=== PATIENT | female | born 1945 | race Caucasian/White ===

== ENCOUNTER 2024-05-20 23:58 | Inpatient (IN) | payer MEDICARE, OTHER, SELFPAY ==
[2024-05-20 20:25] LABS: % Basophils 0.2 % (0-2); % Immature Granulocytes 0.7 % (0-0.5); % Lymphocytes 4.2 % (20.5-51.1); % Monocytes 4.7 % (1.7-9.3); % Neutrophils 90.2 % (42.2-75.2); Absolute Immature Granulocytes 0.1 10^3/uL (0-0.05); Absolute Lymphocytes 0.4 10^3/uL (1.2-3.4); Absolute Monocytes 0.4 10^3/uL (0.1-0.6); Absolute Neutrophils 8.3 10^3/uL (1.4-6.5); Hematocrit 41.9 % (37.0-47.0); Hemoglobin 14.3 g/dL (12.0-16.0); Mean Corp Hgb Conc. 34.1 g/dL (33.0-37.0); Mean Corpuscular Hgb 30.2 pg (27.0-31.0); Mean Corpuscular Volume 88.4 fL (81.0-99.0); Mean Platelet Volume 8.9 fL (7.4-10.4); Nucleated Red Blood Cells % 0 %; Platelet Count 200 10^3/uL (130-400); Red Blood Cell Count 4.74 10^6/uL (4.20-5.40); Red Cell Dist. Width 13.3 % (11.5-14.5); White Blood Cell Count 9.1 10^3/uL (4.8-10.8)
[2024-05-20 20:47] LABS: ALT (SGPT) 170 U/L (0-35); AST (SGOT) 182 U/L (14-36); Albumin 4.2 g/dl (3.5-5.0); Alkaline Phosphatase 117 U/L (38-126); Blood Urea Nitrogen 20 mg/dl (7-17); Carbon Dioxide 22 mmol/L (22-30); Glucose 204 mg/dl (70-99); Lipase 21 U/L (23-300); Total Bilirubin 0.7 mg/dl (0.2-1.3); Total Protein 7.1 g/dl (6.3-8.2); eGFR 58.02
[2024-05-20 20:55] LABS: Chloride 97 mmol/L (98-107); Potassium 3.9 mmol/L (3.5-5.1); Sodium 130 mmol/L (135-145)
[2024-05-20] MEDS: NSS 1000 IV (21:31)
--- NOTE | 2024-05-20 21:32 | ED.GENMED ---
History of Present Illness
General
Chief Complaint: Abdominal Symptoms
Source: patient
Exam Limitations: none
Time Seen by Provider: 05/20/24 20:12
History of Present Illness
History of Present Illness:
This is a 79 year old female that comes in with c/o just not feeling well. Staes that last night she had the chills. States that this stopped around 2am. Then today she felt better but at 4pm she started wiht chills nausea and vomiting. States that
she has not had a fever. States that she has a headache and slightly dizzy. Denies any fever, shelly pain, SOB, abd pain diarrhea, urinary burning.
Past History
Past History
ED Past Medical History: IDDM and Other (Neuropathy, )
ED Past Surgical History: Cardiac (Stents)
Social History
Tobacco: Former smoker
Alcohol: None
Living: with family
Review of Systems
Review of Systems
All Other Systems: ROS reviewed and negative except as documented in HPI and ROS
Constitutional: Reports chills; Denies fever
EENT: Reports no symptoms
Respiratory: Reports no symptoms; Denies cough or trouble breathing
Cardiac: Reports no symptoms; Denies chest pain
ABD/GI: Reports nausea and vomiting; Denies abdominal pain or diarrhea
: Reports no symptoms; Denies dysuria, frequency or urgency
Musculoskeletal: Reports no symptoms
Skin: Reports no symptoms
Neurological: Reports dizzy (Slight) and headache
Psychiatric: Reports no symptoms
Phy Exam
General Physical Exam
General Presentation: no apparent distress
General age: appears stated age
General Skin: warm and dry
General Habitus: elderly
General Mental: alert
General Hydration: dry mucous membranes
ENT Exam
ENT Exam: TM's normal, pharynx normal and neck supple
Eye Exam
Eye Exam: EOMI
Cardiovascular Exam
Cardiovascular Exam: regular rate/rhythm, no edema, no murmur and normal peripheral pulses
Pulmonary Exam
Pulmonary Exam: lungs clear, no respiratory distress, no rales, chest non tender, no crackles, no wheezing and no cough
Gastrointestinal Exam
Gastrointestinal Exam: normal bowel sounds, non tender, soft, no organomegaly, no pulsatile mass and non distended
Musculoskeletal Exam
Musculoskeletal Exam: full ROM and no edema
Skin Exam
Skin Exam: normal color, warm/dry, no rash and no petechia
Psychiatric Exam
Psychiatric Exam: normal mood/affect
Course
Orders/Labs/Results
Orders:
Orders
05/20/24 20:17
Complete Blood Count/With Diff Urgent
Comprehensive Metabolic Panel Urgent
Lipase Urgent
05/20/24 21:11
0.9% Sodium Chloride 1000 ml [Nss] 1,000 ml IV BOLUS
US Abdomen Complete/Upper Urgent
Comment:
Reason For Exam: elevated liver enzymes
05/20/24 21:30
Urinalysis Reflex To Culture Urgent
Date Specimen was Collected: 05/20/24
Time Specimen was Collected: 21:19
Urine Microscopic Reflex Cult Urgent
Urine Culture Urgent
PETE Source: U
Specimen Description:
Date Specimen was Collected: 05/20/24
Time Specimen was Collected: 21:19
Abnormal Lab Results
05/20/24 05/20/24
20:17 21:30
Abs Immat Gran (auto) 0.1 H 10^3/uL
(0-0.05)
Absolute Neuts (auto) 8.3 H 10^3/uL
(1.4-6.5)
Absolute Lymphs (auto) 0.4 L 10^3/uL
(1.2-3.4)
Immature Gran % 0.7 H %
(0-0.5)
Neutrophils % 90.2 H %
(42.2-75.2)
Lymphocytes % 4.2 L %
(20.5-51.1)
Sodium 130 L mmol/L
(135-145)
Chloride 97 L mmol/L
(98-107)
BUN 20 H mg/dl
(7-17)
Glucose 204 H mg/dl
(70-99)
AST 182 H U/L
(14-36)
ALT 170 H U/L
(0-35)
Lipase 21 L U/L
(23-300)
Urine Ketones Trace A
(Negative)
Ur Occult Blood Reflex 3+ A
(Negative)
Urine Bilirubin 1+ A
(Negative)
Leukocyte Esterase Rfl 2+ A
(Negative)
Urine RBC 3-6 A /HPF
(0-2)
Urine Bacteria (Reflex) Few A
(Negative)
05/20/24 20:17
05/20/24 20:17
Hyponatremia, Chloride very slightly low, Dehydration. Glucose nonfasting. AST/ALT elevation. Lipase slightly low.
Vital Signs
Initial and Last Documented VS:
Initial Vital Signs
Temp Pulse Resp Pulse Ox
97.9 F 74 18 91
05/20/24 20:00 05/20/24 20:00 05/20/24 20:00 05/20/24 20:00
Last Documented Vital Signs
Temp Pulse Resp Pulse Ox
98.6 F 74 18 91
05/20/24 21:32 05/20/24 20:00 05/20/24 20:00 05/20/24 20:00
MDM/Problems Addressed
Differential Diagnosis Includes:
Cholelithiasis, UTI
MDM/Problems Addressed:
This is a 79 year old female that comes in with c/o chills, nausea and vomiting.
Will get abs, Urine and US.
Back into see patient and family. Explained that her liver enzymes are elevated. Her US is normal. Patient continues with abd pain. Will admit. Hospitalist notified.
Chronic conditions affecting care: DM
Acute Exacerbation and/or Progression of Chronic Illness:
NA
*Radiology
Radiology exam reviewed: radiology read reviewed (US=Normal)
*Pulse Oximetry
Patient hypoxic: no
*EKG
Interpreted by ED Provider?: NA
Rate: EKG- N/A
*Control Officer Interpretation
Rate: Control Officer- N/A
*Critical Care Note
Total Time (30-74mins, 75-104mins- exclusive of procedures): Not Applicable
ED Attending Note
-
Portions of this chart may have been created with voice recognition software.� Occasional wrong word or��sound alike� substitutions may have occurred due to the inherent limitations of voice recognition software.
Discharge Plan
Departure
Patient Disposition: Admit
Date of Disposition: 05/20/24
Time of Disposition: 23:27
Admit to: Med/Surg
Presentation/result/management discussed w/ accepting MD/DO: Hospitalist
Patient with high blood pressure during this ER visit?: Yes
Condition: Good
Covid-19: Not Applicable
Discharge Problem:
Abdominal pain, Fever, Elevated liver enzymes
Prescriptions:
No Action
clopidogrel 75 MG tablet
75 mg PO DAILY
acetaminophen [Tylenol Extra Strength] 500 MG tablet
1,000 mg PO BIDPRN PRN (Reason: mild pain)
levothyroxine 50 MCG tablet
50 mcg PO HS
Patient Comments:
05/20/2024, pt. states to take between [id number].
amlodipine 5 MG tablet
5 mg PO DAILY Qty: 30 0RF
Theragen Tablet
1 tab PO DAILY
allopurinol 300 mg tablet
300 mg PO DAILY
olmesartan 40 mg Tablet
40 mg PO DAILY
insulin lispro [Humalog KwikPen Insulin] 100 unit/mL Insulin Pen
8 unit SC DAILY
insulin lispro [Humalog KwikPen Insulin] 100 unit/mL Insulin Pen
14 unit SC QPM
Levemir FlexPen 100 unit/mL (3 mL) Insulin Pen
18 unit SC DAILY
Referrals:
UNKNOWN - PT DOES,NOT KNOW [Family Provider] -
Interventions
Interventions:
*General Assessment Last Done: 05/20/24 20:02
[id number] Assessment Last Done: 05/20/24 20:15
Discharge Date and Time
Print Language: UKRAINIAN
[2024-05-20 21:38] LABS: Urine Albumin Trace (Neg - Trace); Urine Bilirubin 1+ (Negative); Urine Character Clear (Clear); Urine Color Yellow; Urine Glucose Negative (Negative); Urine Ketone Trace (Negative); Urine Leukocyte 2+ (Negative); Urine Nitrite Negative (Negative); Urine Occult Blood 3+ (Negative); Urine Urobilinogen Negative (Neg - 1+)
[2024-05-20 21:47] LABS: Urine Bacteria Few (Negative)
[2024-05-20 23:34] VITALS: BP 189/76
--- NOTE | 2024-05-20 23:55 | HPS.HSE ---
Family Physician
-
Family Physician: NOT KNOW UNKNOWN - PT DOES
Chief Complaint
-
abdominal pain
History of Present Illness
79-year-old female with past medical history of diabetes, neuropathy, CAD status post stents, hypertension, gout, hypothyroidism, presenting with not feeling well and chills last night. Today she felt better but at 4 PM she started having chills,
nausea and 2 episodes of vomiting. No diarrhea. She had pain across the lower part of her belly. She denies fever. She had headache and some dizziness. Denies chest pain, shortness of breath, abdominal pain, diarrhea, urinary symptoms.
Patient does eat at restaurants frequently but no recent travel and denies eating any foods that might irritate her GI tract recently. No sick contacts.
She denies ever having pain like this before. She does have a family history of gallstones but never personally had gallstones.
Patient denies smoking or alcohol use.
Medical History
Past Medical History
Past Medical History: Reports Other (diabetes, neuropathy, CAD status post stents, hypertension, gout, hypothyroidism,)
Past Surgical History: Reports None
Social History
Tobacco: Non-smoker
Alcohol: None
Drug: None
Family History
Family History: Not pertinent
Allergies / Home Medications
Allergies reflects when Allergies were last updated in [facility].
Home Medications with original date entered in [facility]
Allergy/Medication List:
Allergies
Allergy/AdvReac Type Severity Reaction Status Date / Time
No Known Allergies Allergy Unverified 01/24/21 17:03
Home Medications
acetaminophen 500 mg tablet (Tylenol Extra Strength) 1,000 mg PO BIDPRN PRN mild pain 01/24/21
clopidogrel 75 mg tablet 75 mg PO DAILY Blood clot prevention/tx 01/24/21
levothyroxine 50 mcg tablet 50 mcg PO HS Thyroid 01/24/21
amlodipine 5 mg tablet 5 mg PO DAILY #30 tabs 01/27/21
allopurinol 300 mg tablet 300 mg PO DAILY 05/20/24
insulin detemir U-100 100 unit/mL (3 mL) subcutaneous pen (Levemir FlexPen) 18 unit SC DAILY 05/20/24
insulin lispro 100 unit/mL subcutaneous pen (Humalog KwikPen (U-100) Insulin) 8 unit SC DAILY 05/20/24
insulin lispro 100 unit/mL subcutaneous pen (Humalog KwikPen (U-100) Insulin) 14 unit SC QPM 05/20/24
olmesartan 40 mg tablet 40 mg PO DAILY 05/20/24
therapeutic multivitamin 1 tab PO DAILY 05/20/24
Review of Systems
-
History Source: Patient
A 12 point ROS was completed and negative except as noted: Yes
Constitutional: Reports No Symptoms
EENT: Reports No Symptoms
Respiratory: Reports No Symptoms
Cardiac: Reports No Symptoms
Abdomen/GI: Reports See HPI
: Reports No Symptoms
Musculoskeletal: Reports No Symptoms
Skin: Reports No Symptoms
Neurological: Reports No Symptoms
Endocrine: Reports No Symptoms
Hematologic/Lymphatic: Reports No Symptoms
Psych: Reports No Symptoms
Physical Exam
Vital Signs
Vital Signs
Temp Pulse Resp BP Pulse Ox
99.1 F 74 18 189/76 91
05/20/24 23:34 05/20/24 20:00 05/20/24 20:00 05/20/24 23:34 05/20/24 20:00
Physical Exam
General: Well Developed, Well Nourished and No Apparent Distress
HEENT: NormoCephalic, Moist mucous membranes and Atraumatic
Respiratory: Clear
Cardiac: S1/S2 and Regular Rhythm; No Murmur or Rub
GI: Soft, Non Tender, Non Distended and Normal Bowel Sounds; No Organomegaly
Rectal: Deferred by Provider
Musculoskeletal: No Clubbing, No Cyanosis and No Edema
Skin: No Rash
Neuro: Nonfocal/grossly intact
Laboratory Results
-
05/20/24 20:17
05/20/24 20:17
Laboratory Results
Total Bilirubin 0.7 mg/dl (0.2-1.3) 05/20/24 20:17
AST 182 U/L (14-36) H 05/20/24 20:17
ALT 170 U/L (0-35) H 05/20/24 20:17
Alkaline Phosphatase 117 U/L (38-126) 05/20/24 20:17
Lipase 21 U/L (23-300) L 05/20/24 20:17
Impression/Plan
-
IMPRESSION:
PLAN:
# Abdominal pain/vomiting/transaminitis suspect possible choledocholithiasis vs gastroenteritis
-Abdominal ultrasound unremarkable
-N.p.o.
-IV fluids
-Monitor liver enzymes and consider MRCP/GI tomorrow
-Zosyn
CAD status post stents
-hold Plavix for now
Essential hypertension
-Continue amlodipine
-Continue olmesartan
Type 2 diabetes
-Continue Lantus decrease to 11 units
-Hold Premeal Humalog
-Insulin sliding scale
Diabetic neuropathy
Gout
-Continue allopurinol
Hypothyroidism
-Continue levothyroxine
Full code
DVT prophylaxis�SCDs
N.p.o.
[2024-05-21] MEDS: TYLENOL/FEVERALL 650 MG RECTAL (01:19)
[2024-05-21] MEDS: NSS 1000 IV ×3 (01:34→16:18)
[2024-05-21] MEDS: COMPAZINE 5 MG IV (01:36)
[2024-05-21 02:03] LABS: Glucose - Point of Care 192 mg/dl (70-99)
[2024-05-21 02:06] VITALS: BMI 36.2
[2024-05-21 02:07] VITALS: BP 172/70
--- NOTE | 2024-05-21 04:05 | PTCARENOTE ---
Patient arrived on unit about 0200, she appear lethargic but alert to time, place and person. She answered questions appropriately and follows directions. Lungs are clear on room air, even and unlabored respiration. Hypoactive bowl sounds X4
quadrant. Temp on arrival to unit was 101. Currently her temp is 99.0. She stated she feels much better. She is X1 assist to the bathroom. Bed at lowest level, call whalen with in reached. Will continue to monitor.
[2024-05-21] MEDS: ZOSYN 50 IV ×4 (04:36→22:40)
[2024-05-21 05:28] LABS: Glucose - Point of Care 166 mg/dl (70-99)
[2024-05-21] MEDS: NOVOLOG FLEXPEN-MODERATE RESISTANCE 1 UNITS SC (05:54)
[2024-05-21 06:05] VITALS: BP 118/56
--- NOTE | 2024-05-21 06:17 | W.PN.UPDATE ---
Update Note
Progress Note Update
Patient noted in ED earlier with T 104 and episode of vomiting. Family said it appeared to be dark brown and concern for 'old blood'. She had been taking Plavix for previous cardiac stents. She will be evaluated by GI service.
--- NOTE | 2024-05-21 07:02 | PTCARENOTE ---
Patient bladder scan about 0230 with 210ml noted on scan.
[2024-05-21 07:31] VITALS: BP 180/61
[2024-05-21] MEDS: BENICAR 40 MG PO (07:52)
[2024-05-21] MEDS: NORVASC 5 MG PO (07:53)
[2024-05-21 07:56] LABS: Hematocrit 39.9 % (37.0-47.0); Hemoglobin 13.6 g/dL (12.0-16.0); Mean Corp Hgb Conc. 34.1 g/dL (33.0-37.0); Mean Corpuscular Hgb 30.2 pg (27.0-31.0); Mean Corpuscular Volume 88.7 fL (81.0-99.0); Mean Platelet Volume 9.1 fL (7.4-10.4); Platelet Count 162 10^3/uL (130-400); Red Cell Dist. Width 13.4 % (11.5-14.5); White Blood Cell Count 8.3 10^3/uL (4.8-10.8)
[2024-05-21 07:58] LABS: Glucose - Point of Care 172 mg/dl (70-99)
[2024-05-21] MEDS: LANTUS SC (08:10)
[2024-05-21] MEDS: OMNIPAQUE 50 ML PO (08:45)
[2024-05-21 10:07] LABS: Glycohemoglobin (HgbA1c) 7.2 % (4.0-5.6)
[2024-05-21 10:15] LABS: ALT (SGPT) 243 U/L (0-35); AST (SGOT) 231 U/L (14-36); Albumin 3.8 g/dl (3.5-5.0); Alkaline Phosphatase 135 U/L (38-126); Blood Urea Nitrogen 18 mg/dl (7-17); Calcium 8.6 mg/dl (8.4-10.2); Carbon Dioxide 20 mmol/L (22-30); Chloride 101 mmol/L (98-107); Estimated Creatinine Clearance 51 ml/min; Glucose 161 mg/dl (70-99); Magnesium 1.8 mg/dl (1.6-2.3); Potassium 3.8 mmol/L (3.5-5.1); Sodium 133 mmol/L (135-145); Total Bilirubin 0.9 mg/dl (0.2-1.3); Total Protein 6.4 g/dl (6.3-8.2); eGFR 58.02
--- NOTE | 2024-05-21 11:19 | W.PN.HOSP.TC ---
Today's Communication/Plan
-
CT abd/pelvis pending
IVF for now
IV abx for now
await culture data
GI recs
Assessment / Plan
Assessment / Plan
#Nausea and vomiting with concern for hematemesis
-N.p.o.
-IV fluids
-Plavix has been held on admission
-US abd negative for gallstones
-CT abd/pelvis is pending
-Hgb stable. Trend h/h.
-Gi eval
SIRS unclear etiology
-f/u on blood cultures
-IV abx for now
-No cough.
-If with diarrhea check stool studies
-CT abd/pelvis pending
CAD status post stents 4 years ago
-hold Plavix for now
Essential hypertension
-Continue amlodipine
-Continue olmesartan
-prn hydralazine
Type 2 diabetes
-Continue Lantus decrease to 11 units
-Hold Premeal Humalog
-Insulin sliding scale
Diabetic neuropathy
Gout
-Continue allopurinol
Hypothyroidism
-Continue levothyroxine
Full code
DVT prophylaxis�SCDs
Anticipated Discharge: > 48 hours
Subjective/Interval History
-
Date of Service: May 21, 2024
states of nausea and vomiting yesterday
did not eat much yesterday
no abd pain
Objective Data
-
Labs:
Laboratory Results
05/21/24
07:26
WBC 8.3
Hgb 13.6
Hct 39.9
Plt Count 162
Sodium 133 L
Potassium 3.8
Chloride 101
Carbon Dioxide 20 L
BUN 18 H
Creatinine 1.0
Glucose 161 H
Calcium 8.6
Total Bilirubin 0.9
AST 231 H
ALT 243 H
Alkaline Phosphatase 135 H
Vital Signs:
Vital Signs
Temp Pulse Resp BP Pulse Ox
98.5 F 68 18 180/61 96
05/21/24 07:31 05/21/24 07:53 05/21/24 07:31 05/21/24 07:53 05/21/24 07:31
I&O
05/20/24 05/21/24 05/22/24
06:59 06:59 06:59
Intake Total 400 / 400
Balance 400 / 400
Physical Exam
-
General: Well Developed, No Apparent Distress and Morbidly Obese
HEENT: Normocephalic, Atraumatic and Moist Mucous Membranes
Respiratory: Clear to Auscultation
Cardiac: Regular Rhythm and S1/S2; Negative Murmur, Rub or Gallop
GI: Soft, Nontender, Nondistended and Normal Bowel Sounds; Negative Organomegaly
Rectal: Deferred by Provider
Musculoskeletal: No Clubbing, No Cyanosis and No Edema
Skin: Negative Rash
Neuro: Awake and Nonfocal/Grossly Intact
Psych: Calm
Data Reviewed
-
Total Time Spent with Patient (in minutes): 55
[2024-05-21] MEDS: NOVOLOG FLEXPEN-MODERATE RESISTANCE SC (12:01)
--- NOTE | 2024-05-21 12:10 | CM ---
Patient seen bedside with family in room.
Patient lives with spouse in a 2 story home with 1 step to enter.
Patient independent prior to admission.
Patient does not use assistive devices.
Patient had [facility] in the past, not current.
Patient denies home care needs at this time, but would like [facility] if needs arise.
PCP: Dr Staci Dixon, in [facility]
Pharmacy: [facility]
Plan: home with possible [facility]N needs.
--- NOTE | 2024-05-21 13:23 | CON.GI ---
Addendum entered and electronically signed by Braeden Rausch MD 05/21/24 14:21:
I saw and examined the patient.
The PIPELINE INSPECTOR or PA's note was reviewed and I agree with the note.
Comment: 79yo female presents with fever 104, nausea and vomiting, and lethargy. LFTs noted to be elevated. US normal. Denies abd pain, diarrhea, dysuria. Has some cough. Denies EtOH. Family reports emesis dark after several episodes. Had
colonoscopy few months ago and EGD years ago in [place]. Denies NSAIDs.
REC:
Await CT report done today
Await blood, urine cultures for fever source
Trend LFTs. If increasing or if abd pain, consider MRI/MRCP if CT non-diagnostic
Follow Hgb. Hold on EGD unless active bleeding. May have had Linda-Velez tear, gastritis.
OK for clears
Check Hep A IgM given fever and elevated LFTs.
Will follow
Addendum entered and electronically signed by TRIPP Quintanilla 05/21/24 14:12:
if CT neg and LFT's further elevation consider MRI/MRCP
Original Note:
Consultation
-
Date/Time Consultation Requested: 05/21/24 1230
Date/Time Consultation Performed: 05/21/24 1320
Requesting Provider: Oswaldo Baez MD
Performing Provider: TRIPP Oliva, Braeden Rausch MD
Reason for Consultation: vomiting, elevated LFT's
Medical History
Chief Complaint / HPI
Chief Complaint: chills, fever, vomiting
History of Present Illness:
Pt is a 79yo with hx CAD with stent on Plavix for last 4 years, HTN, hypothyroidism, DM with onset of shaking chills with nausea then vomiting brown emesis day prior to admission. In ER noted with fever 104.2 after admission bili 0.7, AST 182, ALT
170, alk phos 117, lipase 21 with hbgA1c 7.2, Na 130 and normal WBC's. Prior hepatitis C neg in 2020. With symptoms she admits to occasional GERD with TUMS PRN use but no abdominal pain, wt loss, diarrhea, or bleeding. Last colonoscopy in
[place] few months ago and EGD few years ago pt recall as normal. No new meds or NSAID use. No recent travel, or sick contacts. No hx ETOH use or prior noted liver issues. She admits to cough but no urinary symptoms. US on admission normal CT
pending.
Past Medical History
Past Medical History: CAD, HTN, Hypothyroidism, NIDDM (with neuropathy) and Other (gout)
Past Surgical History: Cardiac (stent on plavix)
Social History
Tobacco: Non-Smoker
Alcohol: None
Drug: None
Living: With Family
Employment: Retired
Family History
Family History: Other (no family hx GI malignancies )
Allergies / Home Medications
Allergy/AdvReac Type Severity Reaction Status Date / Time
No Known Allergies Allergy Unverified 01/24/21 17:03
�Medication �Instructions �Recorded
acetaminophen 500 mg tablet 1,000 mg PO BIDPRN PRN mild pain 01/24/21
(Tylenol Extra Strength)
clopidogrel 75 mg tablet 75 mg PO DAILY Blood clot 01/24/21
prevention/tx
levothyroxine 50 mcg tablet 50 mcg PO HS Thyroid 01/24/21
amlodipine 5 mg tablet 5 mg PO DAILY #30 tabs 01/27/21
allopurinol 300 mg tablet 300 mg PO DAILY Gout 05/20/24
insulin detemir U-100 100 unit/mL 18 unit SC DAILY Diabetes 05/20/24
(3 mL) subcutaneous pen (Levemir
FlexPen)
insulin lispro 100 unit/mL 8 unit SC DAILY Diabetes 05/20/24
subcutaneous pen (Humalog KwikPen
(U-100) Insulin)
insulin lispro 100 unit/mL 14 unit SC QPM Diabetes 05/20/24
subcutaneous pen (Humalog KwikPen
(U-100) Insulin)
olmesartan 40 mg tablet 40 mg PO DAILY Blood Pressure 05/20/24
therapeutic multivitamin 1 tab PO DAILY Supplement 05/20/24
Review of Systems
-
History Source: Patient and Family
Constitutional: Reports Chills
EENT: Reports No Symptoms
Respiratory: Reports Cough
Cardiac: Reports No Symptoms
Abdomen/GI: Reports Nausea and Vomiting
: Reports No Symptoms
Musculoskeletal: Reports No Symptoms
Skin: Reports No Symptoms
Neurological: Reports Weakness
Endocrine: Reports No Symptoms
Hematologic/Lymphatic: Reports No Symptoms
Vital Signs
Temp Pulse Resp BP Pulse Ox
98.5 F 68 18 180/61 96
05/21/24 07:31 05/21/24 07:53 05/21/24 07:31 05/21/24 07:53 05/21/24 07:31
Physical Exam
Exam
General: Well Developed, Well Nourished, No Apparent Distress and Other (flush appearing)
HEENT: Normocephalic
Respiratory: Clear
Cardiac: Regular Rhythm
GI: Soft, Non Tender and Non Distended
Musculoskeletal: No Clubbing and No Cyanosis
Skin: Warm and Dry
Neuro: Awake, Alert and AO x 3
Psych: Calm
Results
WBC 8.3 10^3/uL (4.8-10.8) 05/21/24 07:26
Hgb 13.6 g/dL (12.0-16.0) 05/21/24 07:26
Hct 39.9 % (37.0-47.0) 05/21/24 07:26
MCV 88.7 fL (81.0-99.0) 05/21/24 07:26
Plt Count 162 10^3/uL (130-400) 05/21/24 07:26
Absolute Neuts (auto) 8.3 10^3/uL (1.4-6.5) H 05/20/24 20:17
Sodium 133 mmol/L (135-145) L 05/21/24 07:26
Potassium 3.8 mmol/L (3.5-5.1) 05/21/24 07:26
Chloride 101 mmol/L (98-107) 05/21/24 07:26
Carbon Dioxide 20 mmol/L (22-30) L 05/21/24 07:26
BUN 18 mg/dl (7-17) H 05/21/24 07:26
Creatinine 1.0 mg/dL (0.6-1.0) 05/21/24 07:26
Calcium 8.6 mg/dl (8.4-10.2) 05/21/24 07:26
Total Bilirubin 0.9 mg/dl (0.2-1.3) 05/21/24 07:26
AST 231 U/L (14-36) H 05/21/24 07:26
ALT 243 U/L (0-35) H 05/21/24 07:26
Alkaline Phosphatase 135 U/L (38-126) H 05/21/24 07:26
Lipase 21 U/L (23-300) L 05/20/24 20:17
Diagnostic Image Results:
05/20 US normal
Prior GI Procedures:
EGD: few years ago [place] recalls as normal
Colonoscopy: within last year [place] recalls as normal
Assessment / Plan
-
Pt is a 79yo with hx CAD with stent on Plavix for last 4 years, HTN, hypothyroidism, DM with onset of shaking chills with nausea then vomiting brown emesis day prior to admission. In ER noted with fever 104.2 after admission bili 0.7, AST 182, ALT
170, alk phos 117, lipase 21 with hbgA1c 7.2, Na 130 and normal WBC's. Prior hepatitis C neg in 2020. With symptoms she admits to occasional GERD with TUMS PRN use but no abdominal pain, wt loss, diarrhea, or bleeding. Last colonoscopy in
[place] few months ago and EGD few years ago pt recall as normal. No new meds or NSAID use. No recent travel, or sick contacts. No hx ETOH use or prior noted liver issues. She admits to cough but no urinary symptoms. US on admission normal
-fever/shaking chills
-cough
-nausea/vomiting with dark emesis
-elevated LFT's
-hyponatremia
other med problems:
-CAD with stent - plavix prior to admission
-DM
-hypothyroidism
PLAN:
etiology of fever/chills with elevated LFT's related to biliary etiology though US stable, sepsis with cough- resp related, vs other
await CT results just complete
trend LFT's
monitor for recurrent vomiting and signs of bleeding
hold EGD for now with fever work up
improved with abx use
-will add CXR to complete infectious work up for fever
check hep A and B with prior C neg
ok for clear diet as tolerating contrast from CT
family updated
-
-
Thank you for consultation and allowing me to participate in the patient's care. Please call the biodiesel division manager GI physician during the after hours with any questions or concerns.
[2024-05-21 14:27] VITALS: BP 134/83
[2024-05-21 15:15] VITALS: BP 183/59
[2024-05-21 16:51] LABS: Glucose - Point of Care 263 mg/dl (70-99)
[2024-05-21] MEDS: NOVOLOG FLEXPEN-MODERATE RESISTANCE 5 UNITS SC (16:56)
[2024-05-21 17:13] LABS: Glucose - Point of Care 144 mg/dl (70-99)
[2024-05-21 19:10] LABS: Hematocrit 34.3 % (37.0-47.0); Hemoglobin 12.3 g/dL (12.0-16.0)
[2024-05-21 21:43] LABS: Glucose - Point of Care 216 mg/dl (70-99)
[2024-05-21] MEDS: SYNTHROID 50 MCG PO (22:40)
[2024-05-21 23:30] VITALS: BP 165/65
[2024-05-22] MEDS: TYLENOL 650 MG PO (00:18)
[2024-05-22] MEDS: NOVOLOG FLEXPEN-MODERATE RESISTANCE SC (00:29)
[2024-05-22] MEDS: ZOSYN 50 IV ×2 (03:39→11:43)
[2024-05-22] MEDS: NSS 1000 IV (03:40)
[2024-05-22 06:00] VITALS: BMI 36.0
[2024-05-22 07:42] LABS: % Basophils 0.5 % (0-2); % Eosinophils 2.2 % (0-6); % Immature Granulocytes 1.1 % (0-0.5); % Lymphocytes 13.5 % (20.5-51.1); % Monocytes 9.7 % (1.7-9.3); Absolute Eosinophils 0.1 10^3/uL (0-0.7); Absolute Lymphocytes 0.5 10^3/uL (1.2-3.4); Absolute Monocytes 0.4 10^3/uL (0.1-0.6); Absolute Neutrophils 2.7 10^3/uL (1.4-6.5); Hematocrit 35.9 % (37.0-47.0); Hemoglobin 12.2 g/dL (12.0-16.0); Mean Corpuscular Volume 88.2 fL (81.0-99.0); Mean Platelet Volume 9.2 fL (7.4-10.4); Nucleated Red Blood Cells % 0 %; Platelet Count 133 10^3/uL (130-400); Red Blood Cell Count 4.07 10^6/uL (4.20-5.40); Red Cell Dist. Width 13.5 % (11.5-14.5); White Blood Cell Count 3.7 10^3/uL (4.8-10.8)
[2024-05-22 07:57] LABS: INR 1.25; PT 15.5 Sec (11.4-14.6)
--- NOTE | 2024-05-22 08:06 | W.PN.GI.CBS2 ---
Today's Communication / Plan
-
Await LFTs to see if they have peaked
Suspect viral syndrome for fever, nausea, vomit, and diarrhea
Check C diff as well
Told pt she needs OP follow up for her R acetabular bone lesion
Advance diet if nausea improves
Assessment / Plan
-
Summary: Pt is a 79yo with hx CAD with stent on Plavix for last 4 years, HTN, hypothyroidism, DM with onset of shaking chills with nausea then vomiting brown emesis day prior to admission. In ER noted with fever 104.2 after admission bili 0.7, AST
182, ALT 170, alk phos 117, lipase 21 with hbgA1c 7.2, Na 130 and normal WBC's. Prior hepatitis C neg in 2020. With symptoms she admits to occasional GERD with TUMS PRN use but no abdominal pain, wt loss, diarrhea, or bleeding. Last colonoscopy in
[place] few months ago and EGD few years ago pt recall as normal. No new meds or NSAID use. No recent travel, or sick contacts. No hx ETOH use or prior noted liver issues. She admits to cough but no urinary symptoms. US on admission normal
CT AP- Severe pancreatic atrophy, mild sigmoid diverticulosis. Fatty liver top normal, 1cm amorphous sclerotic focus R acetabulum possible etiologies include benign bone island or sclerotic metastasis
Impression:
-fever/shaking chills
-cough
-diarrhea started after admission
-nausea/vomiting with dark emesis
-elevated LFT's
-R acetabular bone lesion
-hyponatremia
other med problems:
-CAD with stent - plavix prior to admission
-DM
-hypothyroidism
Subjective
Subjective
Date of Service: May 22, 2024
Nausea is improved. Tolerating clears. Now having diarrhea
Objective
Data Reviewed
Laboratory Data:
Laboratory Results
05/22/24 06:52
Laboratory Results
PT 15.5 Sec (11.4-14.6) H 05/22/24 06:52
INR 1.25 05/22/24 06:52
Magnesium 1.8 mg/dl (1.6-2.3) 05/21/24 07:26
Total Bilirubin 0.9 mg/dl (0.2-1.3) 05/21/24 07:26
AST 231 U/L (14-36) H 05/21/24 07:26
ALT 243 U/L (0-35) H 05/21/24 07:26
Alkaline Phosphatase 135 U/L (38-126) H 05/21/24 07:26
Lipase 21 U/L (23-300) L 05/20/24 20:17
Vital Signs and I&O:
Vital Signs
Temp Pulse Resp BP Pulse Ox
100.7 F H 74 18 165/65 96
05/21/24 23:30 05/21/24 23:30 05/21/24 23:30 05/21/24 23:30 05/21/24 23:30
I&O
05/21/24 05/22/24 05/23/24
06:59 06:59 06:59
Intake Total 400 / 400 2019
Balance 400 / 400 2019
Physical Exam
Physical Exam
GI: Soft, Non Distended and Non Tender
[2024-05-22 08:13] LABS: ALT (SGPT) 258 U/L (0-35); AST (SGOT) 173 U/L (14-36); Albumin 3.1 g/dl (3.5-5.0); Alkaline Phosphatase 148 U/L (38-126); Blood Urea Nitrogen 15 mg/dl (7-17); Calcium 7.6 mg/dl (8.4-10.2); Carbon Dioxide 22 mmol/L (22-30); Chloride 105 mmol/L (98-107); Estimated Creatinine Clearance 51 ml/min; Glucose 136 mg/dl (70-99); Potassium 3.5 mmol/L (3.5-5.1); Sodium 134 mmol/L (135-145); Total Protein 5.8 g/dl (6.3-8.2); eGFR 58.02
[2024-05-22 08:26] LABS: Glucose - Point of Care 199 mg/dl (70-99)
[2024-05-22] MEDS: NOVOLOG FLEXPEN-MODERATE RESISTANCE 1 UNITS SC ×2 (09:20→17:43)
[2024-05-22] MEDS: LANTUS 0.100000000000000006 UNITS SC (09:22)
[2024-05-22] MEDS: BENICAR 40 MG PO (09:28)
[2024-05-22] MEDS: NORVASC 5 MG PO (09:28)
[2024-05-22 10:15] LABS: COVID-19 Antigen Negative (Negative)
[2024-05-22 11:16] LABS: Glucose - Point of Care 219 mg/dl (70-99)
--- NOTE | 2024-05-22 12:04 | W.PN.HOSP.TC ---
Today's Communication/Plan
-
Advance diet
DC fluids
Trend LFTs
DC antibiotics
Assessment / Plan
Assessment / Plan
#Nausea and vomiting and diarrhea likely 2/2 viral gastroenteritis
-Plavix restarted
-US abd negative for gallstones
-CT abd/pelvis no acute CT finding. History of pancreatic atrophy. Mild sigmoid diverticulosis. Calcified right fundal uterine fibroid. Fatty infiltration of the liver which is top normal in size. 1 cm amorphous sclerotic focus in posterior
column right acetabulum. Possible etiologies include benign bone island or sclerotic metastasis. Does the patient have a known primary malignancy? If so, correlation with whole-body bone scan at this time would be recommended. If not, follow-up CT
pelvis in 6 months would be recommended.
-CXR negative for acute infiltrates.
-Hgb stable.
-Diet advanced to full's. DC fluids.
-C. difficile pending.
-Stop antibiotics and observe.
-Gi eval
#R acetabulum lesion
-op F/U follow-up with primary doctor and bone scan recommended. This was discussed with patient daughter who verbalized understanding.
CAD status post stents 4 years ago
-Restart Plavix
Essential hypertension
-Continue amlodipine
-Continue olmesartan
-prn hydralazine
Type 2 diabetes
-Continue Lantus decrease to 11 units
-Hold Premeal Humalog
-Insulin sliding scale
Diabetic neuropathy
Gout
-Continue allopurinol
Hypothyroidism
-Continue levothyroxine
Full code
DVT prophylaxis�SCDs
Updated patient daughter over the phone in complete details
Anticipated Discharge: > 48 hours
Subjective/Interval History
-
Date of Service: May 22, 2024
No abdominal pain nausea vomiting
States of loose stools
Objective Data
-
Labs:
Laboratory Results
05/22/24
06:52
WBC 3.7 L
Hgb 12.2
Hct 35.9 L
Plt Count 133
PT 15.5 H
INR 1.25
Sodium 134 L
Potassium 3.5
Chloride 105
Carbon Dioxide 22
BUN 15
Creatinine 1.0
Glucose 136 H
Calcium 7.6 L
Total Bilirubin 1.0
AST 173 H
ALT 258 H
Alkaline Phosphatase 148 H
Vital Signs:
Vital Signs
Temp Pulse Resp BP Pulse Ox
100.7 F H 62 18 141/59 96
05/21/24 23:30 05/22/24 09:28 05/21/24 23:30 05/22/24 09:28 05/21/24 23:30
I&O
05/21/24 05/22/24 05/23/24
06:59 06:59 06:59
Intake Total 400 / 400 2019
Balance 400 / 400 2019
Physical Exam
-
General: Well Developed, No Apparent Distress and Morbidly Obese
HEENT: Normocephalic, Atraumatic and Moist Mucous Membranes
Respiratory: Clear to Auscultation
Cardiac: Regular Rhythm and S1/S2; Negative Murmur, Rub or Gallop
GI: Soft, Nontender, Nondistended and Normal Bowel Sounds; Negative Organomegaly
Rectal: Deferred by Provider
Musculoskeletal: No Clubbing, No Cyanosis and No Edema
Skin: Negative Rash
Neuro: Awake and Nonfocal/Grossly Intact
Psych: Calm
Data Reviewed
-
Total Time Spent with Patient (in minutes): 55
[2024-05-22] MEDS: NOVOLOG FLEXPEN-MODERATE RESISTANCE 3 UNITS SC (13:12)
[2024-05-22 15:26] VITALS: BP 129/61
--- NOTE | 2024-05-22 16:11 | PTCARENOTE ---
Assumed care of pt from previous nurse. pt denies pain. pt diet advanced to full liquids from clears, tolerating without issue. Pt call whalen is within reach, pt rings colin. will cont to monitor.
[2024-05-22 17:17] LABS: Glucose - Point of Care 198 mg/dl (70-99)
[2024-05-22 18:26] VITALS: BP 129/61
[2024-05-22] MEDS: SYNTHROID 50 MCG PO (21:17)
[2024-05-22 21:27] LABS: Glucose - Point of Care 199 mg/dl (70-99)
[2024-05-22 23:43] VITALS: BP 132/59
[2024-05-23 06:00] VITALS: BMI 35.9
[2024-05-23 07:47] LABS: % Basophils 0.5 % (0-2); % Eosinophils 3.8 % (0-6); % Immature Granulocytes 0.7 % (0-0.5); % Lymphocytes 24.1 % (20.5-51.1); % Monocytes 10.6 % (1.7-9.3); % Neutrophils 60.3 % (42.2-75.2); Absolute Eosinophils 0.2 10^3/uL (0-0.7); Absolute Lymphocytes 1.3 10^3/uL (1.2-3.4); Absolute Monocytes 0.6 10^3/uL (0.1-0.6); Absolute Neutrophils 3.3 10^3/uL (1.4-6.5); Hematocrit 35.1 % (37.0-47.0); Mean Corp Hgb Conc. 34.2 g/dL (33.0-37.0); Mean Corpuscular Hgb 30.2 pg (27.0-31.0); Mean Corpuscular Volume 88.2 fL (81.0-99.0); Nucleated Red Blood Cells % 0 %; Platelet Count 136 10^3/uL (130-400); Red Blood Cell Count 3.98 10^6/uL (4.20-5.40); Red Cell Dist. Width 13.5 % (11.5-14.5); White Blood Cell Count 5.5 10^3/uL (4.8-10.8)
[2024-05-23 08:14] LABS: ALT (SGPT) 185 U/L (0-35); AST (SGOT) 82 U/L (14-36); Alkaline Phosphatase 139 U/L (38-126); Blood Urea Nitrogen 13 mg/dl (7-17); Calcium 7.9 mg/dl (8.4-10.2); Carbon Dioxide 22 mmol/L (22-30); Chloride 107 mmol/L (98-107); Estimated Creatinine Clearance 63 ml/min; Glucose 116 mg/dl (70-99); Potassium 3.6 mmol/L (3.5-5.1); Sodium 137 mmol/L (135-145); Total Bilirubin 0.5 mg/dl (0.2-1.3); Total Protein 5.6 g/dl (6.3-8.2); eGFR > 60.00
[2024-05-23 09:07] LABS: Glucose - Point of Care 139 mg/dl (70-99)
[2024-05-23] MEDS: NOVOLOG FLEXPEN-MODERATE RESISTANCE SC (09:18)
[2024-05-23] MEDS: NORVASC 5 MG PO (09:21)
[2024-05-23] MEDS: BENICAR 40 MG PO (09:22)
[2024-05-23] MEDS: ZYLOPRIM 300 MG PO (09:22)
[2024-05-23] MEDS: PLAVIX 75 MG PO (09:22)
[2024-05-23] MEDS: LANTUS 0.100000000000000006 UNITS SC (09:23)
--- NOTE | 2024-05-23 09:59 | W.PN.GI.CBS2 ---
Today's Communication / Plan
-
Agree with advancing diet
Most likely viral gastroenteritis that has resolved
LFTs peaked and improving. Would repeat after d/c to ensure normalization
Will sign off.
Assessment / Plan
-
Summary: Pt is a 79yo with hx CAD with stent on Plavix for last 4 years, HTN, hypothyroidism, DM with onset of shaking chills with nausea then vomiting brown emesis day prior to admission. In ER noted with fever 104.2 after admission bili 0.7, AST
182, ALT 170, alk phos 117, lipase 21 with hbgA1c 7.2, Na 130 and normal WBC's. Prior hepatitis C neg in 2020. With symptoms she admits to occasional GERD with TUMS PRN use but no abdominal pain, wt loss, diarrhea, or bleeding. Last colonoscopy in
[place] few months ago and EGD few years ago pt recall as normal. No new meds or NSAID use. No recent travel, or sick contacts. No hx ETOH use or prior noted liver issues. She admits to cough but no urinary symptoms. US on admission normal
CT AP- Severe pancreatic atrophy, mild sigmoid diverticulosis. Fatty liver top normal, 1cm amorphous sclerotic focus R acetabulum possible etiologies include benign bone island or sclerotic metastasis
Impression:
-fever/shaking chills
-cough
-diarrhea started after admission
-nausea/vomiting with dark emesis
-elevated LFT's
-R acetabular bone lesion
-hyponatremia
other med problems:
-CAD with stent - plavix prior to admission
-DM
-hypothyroidism
Subjective
Subjective
Date of Service: May 23, 2024
Nausea improved. Afebrile overnight. Still denies abd pain
Objective
Data Reviewed
Laboratory Data:
Laboratory Results
05/23/24 06:33
05/23/24 06:33
Laboratory Results
PT 15.5 Sec (11.4-14.6) H 05/22/24 06:52
INR 1.25 05/22/24 06:52
Magnesium 1.8 mg/dl (1.6-2.3) 05/21/24 07:26
Total Bilirubin 0.5 mg/dl (0.2-1.3) 05/23/24 06:33
AST 82 U/L (14-36) H 05/23/24 06:33
ALT 185 U/L (0-35) H 05/23/24 06:33
Alkaline Phosphatase 139 U/L (38-126) H 05/23/24 06:33
Lipase 21 U/L (23-300) L 05/20/24 20:17
Vital Signs and I&O:
Vital Signs
Temp Pulse Resp BP Pulse Ox
98.3 F 61 18 132/59 96
05/22/24 23:43 05/22/24 23:43 05/22/24 23:43 05/22/24 23:43 05/22/24 23:43
I&O
05/22/24 05/23/24 05/24/24
06:59 06:59 06:59
Intake Total 2019 740 / 740
Balance 2019 740 / 740
Physical Exam
Physical Exam
GI: Soft, Non Distended and Non Tender
[2024-05-23 10:14] VITALS: BP 152/69
--- NOTE | 2024-05-23 11:04 | W.PN.HOSP.TC ---
Today's Communication/Plan
-
Imodium
monitor diet tolerance
PT/OT
Assessment / Plan
Assessment / Plan
#Nausea and vomiting and diarrhea likely 2/2 viral gastroenteritis
-Plavix restarted
-US abd negative for gallstones
-CT abd/pelvis no acute CT finding. History of pancreatic atrophy. Mild sigmoid diverticulosis. Calcified right fundal uterine fibroid. Fatty infiltration of the liver which is top normal in size. 1 cm amorphous sclerotic focus in posterior
column right acetabulum. Possible etiologies include benign bone island or sclerotic metastasis. Does the patient have a known primary malignancy? If so, correlation with whole-body bone scan at this time would be recommended. If not, follow-up CT
pelvis in 6 months would be recommended.
-CXR negative for acute infiltrates.
-Hgb stable.
-Tolerated fulls advanced to LR.
-C. difficile negative. Will give dose of Imodium
-Stop antibiotics and observe.
-Gi eval
#R acetabulum lesion
-op F/U follow-up with primary doctor and bone scan recommended. This was discussed with patient daughter who verbalized understanding.
CAD status post stents 4 years ago
-Restart Plavix
Essential hypertension
-Continue amlodipine
-Continue olmesartan
-prn hydralazine
Type 2 diabetes
-Continue Lantus decrease to 11 units
-Hold Premeal Humalog
-Insulin sliding scale
Diabetic neuropathy
Gout
-Continue allopurinol
Hypothyroidism
-Continue levothyroxine
Full code
DVT prophylaxis�SCDs
Updated patient daughter over the phone in complete details 05/22 and 05/23.
Anticipated Discharge: Within 24 hours
Subjective/Interval History
-
Date of Service: May 23, 2024
Patient tolerating liquids
States with severe loose bowel movements
Denies abdominal pain nausea vomiting
Objective Data
-
Labs:
Laboratory Results
05/23/24
06:33
WBC 5.5
Hgb 12.0
Hct 35.1 L
Plt Count 136
Sodium 137
Potassium 3.6
Chloride 107
Carbon Dioxide 22
BUN 13
Creatinine 0.8
Glucose 116 H
Calcium 7.9 L
Total Bilirubin 0.5
AST 82 H
ALT 185 H
Alkaline Phosphatase 139 H
Vital Signs:
Vital Signs
Temp Pulse Resp BP Pulse Ox
97.4 F 59 16 152/69 98
05/23/24 10:14 05/23/24 10:14 05/23/24 10:14 05/23/24 10:14 05/23/24 10:14
I&O
05/22/24 05/23/24 05/24/24
06:59 06:59 06:59
Intake Total 2019 740 / 740
Balance 2019 740 / 740
Physical Exam
-
General: Well Developed, No Apparent Distress and Morbidly Obese
HEENT: Normocephalic, Atraumatic and Moist Mucous Membranes
Respiratory: Clear to Auscultation
Cardiac: Regular Rhythm and S1/S2; Negative Murmur, Rub or Gallop
GI: Soft, Nontender, Nondistended and Normal Bowel Sounds; Negative Organomegaly
Rectal: Deferred by Provider
Musculoskeletal: No Clubbing, No Cyanosis and No Edema
Skin: Negative Rash
Neuro: Awake and Nonfocal/Grossly Intact
Psych: Calm
[2024-05-23 12:03] LABS: Glucose - Point of Care 266 mg/dl (70-99)
[2024-05-23] MEDS: NOVOLOG FLEXPEN-MODERATE RESISTANCE 5 UNITS SC (13:53)
[2024-05-23 15:00] VITALS: BP 114/72
[2024-05-23 15:18] VITALS: BP 114/72; BP 170/79; PULSE 60; O2SAT 98
[2024-05-23 17:01] LABS: Glucose - Point of Care 196 mg/dl (70-99)
[2024-05-23] MEDS: NOVOLOG FLEXPEN-MODERATE RESISTANCE 1 UNITS SC (17:07)
[2024-05-23] MEDS: SYNTHROID 50 MCG PO (21:27)
[2024-05-23 21:40] LABS: Glucose - Point of Care 150 mg/dl (70-99)
[2024-05-23 23:00] VITALS: BP 107/70
[2024-05-24 06:00] VITALS: BMI 36.5
[2024-05-24 07:00] VITALS: BP 156/73
[2024-05-24 08:30] LABS: Glucose - Point of Care 162 mg/dl (70-99)
[2024-05-24] MEDS: NOVOLOG FLEXPEN-MODERATE RESISTANCE 1 UNITS SC (09:16)
[2024-05-24] MEDS: PLAVIX 75 MG PO (09:17)
[2024-05-24] MEDS: ZYLOPRIM 300 MG PO (09:17)
[2024-05-24] MEDS: NORVASC 5 MG PO (09:17)
[2024-05-24] MEDS: LANTUS 0.179999999999999993 UNITS SC (09:20)
[2024-05-24] MEDS: BENICAR 40 MG PO (09:23)
--- NOTE | 2024-05-24 10:01 | W.PN.HOSP.TC ---
Today's Communication/Plan
-
op pcp f/u
Assessment / Plan
Assessment / Plan
#Nausea and vomiting and diarrhea likely 2/2 viral gastroenteritis
-Plavix restarted
-US abd negative for gallstones
-CT abd/pelvis no acute CT finding. History of pancreatic atrophy. Mild sigmoid diverticulosis. Calcified right fundal uterine fibroid. Fatty infiltration of the liver which is top normal in size. 1 cm amorphous sclerotic focus in posterior
column right acetabulum. Possible etiologies include benign bone island or sclerotic metastasis. Does the patient have a known primary malignancy? If so, correlation with whole-body bone scan at this time would be recommended. If not, follow-up CT
pelvis in 6 months would be recommended.
-CXR negative for acute infiltrates.
-Hgb stable.
-Tolerated fulls advanced to LR. Tolerating LR. No diarrhea x 24h. afebrile.
-C. difficile negative. Will give dose of Imodium
-Stop antibiotics and observe.
-Gi eval
#R acetabulum lesion
-op F/U follow-up with primary doctor and bone scan recommended. This was discussed with patient daughter who verbalized understanding.
CAD status post stents 4 years ago
-Restart Plavix
Essential hypertension
-Continue amlodipine
-Continue olmesartan
-prn hydralazine
Type 2 diabetes
-Continue Lantus decrease to 11 units
-Hold Premeal Humalog
-Insulin sliding scale
Diabetic neuropathy
Gout
-Continue allopurinol
Hypothyroidism
-Continue levothyroxine
Full code
DVT prophylaxis�SCDs
Updated patient daughter over the phone in complete details 05/22 and 05/23.
More than 30 minutes spent in discharge including
Final examination of the patient
Summarizing hospital stay
Instructions for continuing care to all relevant caregivers
Preparation of discharge records, prescriptions, and referral forms
Total time spent (in minutes): 45
Anticipated Discharge: Today
Subjective/Interval History
-
Date of Service: May 24, 2024
feeling better
tolerating diet
no loose bm
did not take imodium yesterday
afebrile
Objective Data
-
Vital Signs:
Vital Signs
Temp Pulse Resp BP Pulse Ox
97.8 F 62 16 156/62 97
05/24/24 07:00 05/24/24 09:17 05/24/24 07:00 05/24/24 09:17 05/24/24 07:00
I&O
05/23/24 05/24/24 05/25/24
06:59 06:59 06:59
Intake Total 740 / 740 1860 / 1860
Balance 740 / 740 0 / 1860
Physical Exam
-
General: Well Developed, No Apparent Distress and Morbidly Obese
HEENT: Normocephalic, Atraumatic and Moist Mucous Membranes
Respiratory: Clear to Auscultation
Cardiac: Regular Rhythm and S1/S2; Negative Murmur, Rub or Gallop
GI: Soft, Nontender, Nondistended and Normal Bowel Sounds; Negative Organomegaly
Rectal: Deferred by Provider
Musculoskeletal: No Clubbing, No Cyanosis and No Edema
Skin: Negative Rash
Neuro: Awake and Nonfocal/Grossly Intact
Psych: Calm
--- NOTE | 2024-05-24 10:04 | W.DCSUMMARY ---
Discharge Summary
Discharge Data
Date of Admission: 05/20/24
Date of Discharge: 05/24/24
-
Pending Results: Yes
Hospital Course
79 female past medical history of CAD status post stents, hypertension, diabetes mellitus, neuropathy,,, hypothyroidism was presenting from home with nausea vomiting and diarrhea and fevers. There was some concern of vomitus being dark red and
gastroenterology was consulted. Patient hemoglobin was trended. Patient without any significant drop in hemoglobin. No bright red blood per the rectum or melanotic stools. Probably due to Linda-Velez tear. Plavix was restarted. Patient diet
was slowly advanced. Patient underwent CT abdomen pelvis was negative for acute abdominal pathology. However 1 cm amorphous sclerotic focus in posterior column right acetabulum. Possible etiologies include benign bone island or sclerotic
metastasis. Does the patient have a known primary malignancy? If so, correlation with whole-body bone scan at this time would be recommended. If not, follow-up CT pelvis in 6 months would be recommended. CAT scan finding was relayed to patient and
daughter. Patient and daughter both verbalized understanding to follow-up outpatient with primary doctor for further management. Patient denies any prior history of malignancy. Patient blood cultures were negative. Chest x-ray was negative for
acute pathology. Urine culture was negative. Patient was started on Zosyn admission which was discontinued. Abdominal ultrasound was negative for gallbladder/gallstone obstruction. Patient also had transaminitis which was seen likely secondary
to viral transaminitis. Hepatitis panel was pending want to follow-up outpatient with GI. Patient LFTs improved. Patient was tolerating diet. IV fluid was discontinued. Patient diarrhea resolved. No further fevers or nausea or vomiting.
Patient was up by PT and OT will be discharged home with recommendation to follow-up outpatient with primary doctor and gastroenterology.
Discharge Plan
-
Patient Disposition: Home (Routine Discharge)
Discharge Diagnosis/Procedures: Nausea and vomiting and diarrhea likely 2/2 viral gastroenteritis
Right acetabulum lesion
Transaminitis
Condition: Fair
Diet: Low Residue
Activity: With assistance and As tolerated
Driving Restrictions: As prior to admission
Blood Work: CMP in 1-2 week via primary doctor
Activity Restrictions/Additional Instructions:
1 cm amorphous sclerotic focus in posterior column right acetabulum. Possible etiologies include benign bone island or sclerotic metastasis. Does the patient have a known primary malignancy? If so, correlation with whole-body bone scan at this time
would be recommended. If not, follow-up CT pelvis in 6 months would be recommended. Follow up with primary doctor.
Referrals:
Braeden Rausch MD [Active] - None (Make appt . Follow-up hepatitis serology with GI.)
UNKNOWN - PT DOES,NOT KNOW [Family Provider] - (Recommend to follow with primary doctor for bone lesion, transaminitis and blood pressure management)
Prescriptions:
Continued
clopidogrel 75 MG tablet
75 mg PO DAILY
acetaminophen [Tylenol Extra Strength] 500 MG tablet
1,000 mg PO BIDPRN PRN (Reason: mild pain)
levothyroxine 50 MCG tablet
50 mcg PO HS
Patient Comments:
05/20/2024, pt. states to take between [id number].
amlodipine 5 MG tablet
5 mg PO DAILY Qty: 30 0RF
therapeutic multivitamin Tablet
1 tab PO DAILY
allopurinol 300 mg tablet
300 mg PO DAILY
olmesartan 40 mg Tablet
40 mg PO DAILY
insulin lispro [Humalog KwikPen Insulin] 100 unit/mL Insulin Pen
8 unit SC DAILY
insulin lispro [Humalog KwikPen Insulin] 100 unit/mL Insulin Pen
14 unit SC QPM
Levemir FlexPen 100 unit/mL (3 mL) Insulin Pen
18 unit SC DAILY
Discharge Orders:
Discharge Patient (As Directed); Ordered 05/24/24
Ordered By: Oswaldo Baez
Discharge Date and Time
Print Language: BELARUSIAN
--- NOTE | 2024-05-24 10:05 | CM ---
Patient seen at bedside. Patient states she is for discharge today and IMM reviewed and signed form placed on chart. Patient states she does not need anything for discharge planning. Patient to come shortly and provide transportation home.
CM will continue to follow for discharge planning needs.
Plan; home with no needs.
[2024-05-24 20:30] LABS: Hepatitis B Surface Antigen Negative (Negative)
[2024-05-24 20:48] LABS: Hepatitis B Core Ab, Total Negative (Negative); Hepatitis B Surface Antibody Negative
[2024-05-24 21:10] LABS: Hepatitis A Antibody, Total Negative (Negative)
== END 2024-05-24 12:59 | disposition home or self-care (01) | DRG 391 ==
LOC: 4 WEST ACU 23:58
PROVIDERS: Clinical Nurse Specialist Family Health; Emergency Medicine; Nurse Practitioner Adult Health; Physician Assistant Medical; ADMITTING PHYSICIAN Hospitalist; ATTENDING PHYSICIAN Hospitalist; CONSULT PHYSICIAN Specialist; EMERGENCY PHYSICIAN Emergency Medicine
DX: A08.4 Viral intestinal infection, unspecified (principal); K22.6 Gastro-esophageal laceration-hemorrhage syndrome; E87.1 Hypo-osmolality and hyponatremia; R65.10 Systemic inflammatory response syndrome (SIRS) of non-infectious origin without acute organ dysfunction; R74.01 Elevation of levels of liver transaminase levels; M89.8X8 Other specified disorders of bone, other site; E11.40 Type 2 diabetes mellitus with diabetic neuropathy, unspecified; I25.10 Atherosclerotic heart disease of native coronary artery without angina pectoris; I10 Essential (primary) hypertension; E03.9 Hypothyroidism, unspecified; M10.9 Gout, unspecified; Z95.5 Presence of coronary angioplasty implant and graft; Z79.02 Long term (current) use of antithrombotics/antiplatelets; Z79.4 Long term (current) use of insulin; Z87.891 Personal history of nicotine dependence; Z11.52 Encounter for screening for COVID-19
CPT/HCPCS: 71046; 74177; 76700; 80053; 81003; 81015; 82962; 83036; 83690; 83735; 85014; 85018; 85025; 85027; 85610; 86704; 86705; 86706; 86708; 86709; 87040; 87086; 87324; 87340; 87449; 87811; 96360; 97116; 97161; 97165; 99285; Q9967